=== PATIENT | female | born 1990 | race Caucasian/White ===

== ENCOUNTER → 2018-06-19 13:51 | Outpatient (CLI) | payer OTHER, SELFPAY | LOC: PSN 13:55 | PROVIDERS: Family Provider Student in an Organized Health Care Education/Training Program; PCP Student in an Organized Health Care Education/Training Program; Referring Provider Student in an Organized Health Care Education/Training Program; Visit Provider Student in an Organized Health Care Education/Training Program | DX: R00.2 Palpitations (principal) | CPT/HCPCS: 93225; 93226 ==

== ENCOUNTER 2020-02-03 16:33 | Day surgery (SDC) | payer SELFPAY ==
[2020-02-03] VITALS (8 sets, daily range): BP systolic 97–134; BP diastolic 49–86; PULSE 65–111; RESP 16; TEMP 36.1–36.7; O2SAT 96–99; BMI 30.7
[2020-02-03] MEDS: Lactated Ringers 1,000 ML 100 ML IV (17:05)
--- NOTE | 2020-02-03 17:05 | HP.PCM_ITS ---
- Problem List (1) Ectopic Status: Acute History Date of Admission: 02/03/20 History of this : This is a 29 year-old, who presents for surgical management of a ruptured ectopic . She was following with Elisabet Robles a nurse metal storage worker in our office for early . She reports severe pain 3 days ago as well as light bleeding. Her pain is improved but she is continuing to have vaginal bleeding. Her hCG quant's are consistent with an ectopic . She had an ultrasound today showing a complex appearing mass likely in the right fallopian tube with free fluid surrounding the right ovary, highly suspicious for ruptured ectopic . Has any lightheadedness, dizziness, chest pain, shortness of breath. Medical History: Medical History (Last Updated 02/03/20 @ 17:[address] Fabiola Paul DO) Family history of FAP (familial adenomatous polyposis) Z83.71 Thyroiditis E06.9 Surgical History: Surgical History (Last Updated 02/03/20 @ 17:[address] Fabiola Paul DO) History of colonoscopy Z98.890 History of thyroidectomy Z90.09 Allergies No Known Allergies Allergy (Verified 02/03/20 16:43) Home Medications: Home Medications Levothyroxine Sodium 250 mcg PO 02/03/20 Smoking Status: Current every day smoker History Past Pregnancies: Past Pregnancies Delivery Date Name GA/ Weeks Outcome Route Wt Infant Sex Labor Length Anesthesia Delivery Location Provider FOB Review of Systems Constitutional: Denies: Chills, Fever HEENT: Denies: Head Aches Cardiovascular: Denies: Chest Pain Respiratory: Denies: Cough, Shortness of Breath Gastrointestinal: Denies: Abdominal Pain Genitourinary: Denies: Dysuria Gynecological: Reports: Vaginal bleeding Neurological: Denies: Blurred vision Hematologic/ Lymphatic: Denies: Easy Bruising, Easy Bleeding, Hx of blood clot, Hx of blood transfusion Physical Exam Vitals: Vital Signs Temp Pulse Resp BP Pulse Ox 98.1 F 102 H 16 134/86 H 97 02/03/20 16:46 02/03/20 16:46 02/03/20 16:46 02/03/20 16:46 02/03/20 16:46 General: Alert, No apparent distress HEENT: Atraumatic Cardiovascular: Regular rate Lungs: Clear to auscultation Abdomen: Non-Distended Extremities:: No edema Neurological: Neuro grossly intact Assessment/Plan All Active Problems Ectopic (Acute) This is a 29 year-old, who presented to the office with a likely ruptured ectopic . Her hCG quant levels were being followed in the office, and the levels were decreasing as well as inappropriately rising consistent with an ectopic . She had severe pain several days ago followed by vaginal bleeding. Her pain is improved since then. She had an ultrasound today in the office that shows a likely ruptured ectopic in the right fallopian tube. Discussed risks, benefits, alternatives to a laparoscopic removal of ectopic . Consent was signed and patient desires to proceed with surgical management of a likely ectopic . Counseling today and all questions were answered regarding ectopic in future pregnancies.
[2020-02-03] MEDS: Bupivacaine Mpf 0.5% 30 ML VIAL (17:53)
--- NOTE | 2020-02-03 17:57 | OP.PCM_ITS ---
Problem List (1) Ectopic Status: Acute Report of Operation Date of Procedure: 02/03/20 Pre-Operative Diagnosis: Suspected ectopic Post-Operative Diagnosis: Ruptured ectopic in right fallopian tube Surgery/Procedure Performed:: Laparoscopic right salpingectomy with removal of ruptured ectopic Description of Surgical Findings:: Ectopic present in the right fallopian tube that was ruptured and slowly, actively bleeding. Normal-appearing uterus, bilateral ovaries, left fallopian tube. Minimal amount of hemoperitoneum, about 25 cc of dark red blood present. Type of Anesthesia:: General Special Medications: None Specimen's removed: Right fallopian tube Drains: None Estimated Blood Loss (mL): 10 cc Fluids Replaced: 1 L Description of Procedure: The patient was taken to the operating room where she was prepped and draped in the dorsal lithotomy position using yellowfin stirrups. General anesthesia was induced. From below a weighted speculum was placed in the vagina to expose the cervix. A single-tooth tenaculum was placed on the anterior lip of the cervix and a Alysa cannula was placed for uterine manipulation. Gloves were changed and attention was turned to the abdominal portion of the case. Local was injected below the umbilicus and an incision was made to accommodate a 5 mm port. A 5 mm port was placed under direct visualization with the laparoscope. Once confirmed intraperitoneal CO2 insufflation was initiated. A left lateral 5 mm port was placed. A right lateral 12 mm port was placed. The pelvis was examined and findings were noted as above. The right fallopian tube with the ectopic was followed out to the fimbriated end. The right fallopian tube was elevated of the pelvis and using the LigaSure device the mesosalpinx was serially cauterized and transected in order to remove the right fallopian tube and the ectopic . An Endo Catch bag was placed in the right lateral port to remove the right fallopian tube with ectopic . The specimen was sent to pathology for review. The area was noted to be hemostatic. Ports were removed. The fascia of the 12 mm port site was closed with a figure-of- eight Vicryl suture. And was closed with Monocryl and Dermabond was placed over the incisions. Below all instruments were removed from the vagina and vaginal sweep was performed. Instrument counts were correct. Patient was taken recovery in stable condition. Grafts/Implants Used: None - Complications None - Admit VTE Documentation VTE Present on Admission: No VTE Mechan Device Prophylaxis: SCD's
--- NOTE | 2020-02-03 18:21 | DCINST_ITS ---
- Discharge Diagnoses Current Active Problems: Current Active and Chronic Problems (Last Updated 02/03/20 @ 17:[address] Fabiola Paul DO) Ectopic (Acute) You will use the following diet at home:: No restrictions, Regular Discharge Activity: May not drive while taking narcotic pain medications., May Shower Return to work on:: 02/10/20 May shower in (days): 0 May resume sexual activity in: 2 weeks Ice area for (Minutes): 15 Weight Bearing Status: Weight bearing as tolerated Lifting Restrictions: No lifting greater than 15 pounds for 6 weeks Call your doctor if your incision/area has: Sudden Increased Bleeding, Increased Pain/ Swelling, Increased Redness, Foul Smelling Discharge, Swelling at the incision site Call your doctor if you observe: Fever of 101 or Higher, Inability to urinate, Inability to have a bowel movement, Using more than one pad per hour, Shortness of breath, Dizziness, Chest pain, Increased palpitations (irregular heartbeat), Calf discomfort, Uncontrolled pain Suture Line Care: Avoid Pulling/Pushing, Avoid Pinching/Bending Cleanse incision/area with: Soap & Water Allergies/Adverse Reactions: Allergies No Known Allergies Allergy (Verified 02/03/20 16:43) Medications to take at Discharge Ibuprofen [Motrin] 600 mg PO Q6H PRN PRN #30 tab 02/03/20 Levothyroxine Sodium 250 mcg PO 02/03/20 Oxycodone HCl/Acetaminophen [Percocet 5/325] 1 tab PO Q6H PRN PRN 7 Days #10 tab 02/03/20 The following prescriptions were given: Ibuprofen [Motrin] 600 mg PO Q6H PRN PRN #30 tab PRN Reason: Pain Score 1-10/10 Transmission Status: Received by [facility] Oxycodone HCl/Acetaminophen [Percocet 5/325] 1 tab PO Q6H PRN PRN 7 Days #10 tab PRN Reason: Pain Score 6-10/10 Transmission Status: Received by [facility] Primary Care Physician: Stefan Pineda DO [Primary Care Provider] - Test Results: Test results from this visit will be discussed in further detail at your follow- up appointment, if applicable. Please Follow Up With: Fabiola Paul DO When: 1-2 weeks for post op appointment Proposed Discharge Date: 02/03/20
--- NOTE | 2020-02-04 | FALS_PTH ---
PATIENT: RAZIA [place] [facility] [id number] AGE/SX: 29/F ROOM: RE02/03/[address]: Dr. Fabiola Paul DO : 1990 BED: DIS: 02/03/2020 SPEC #: [id number] RECD: 02/04/20 09:50 STATUS: KEENAN REMitch #: [id number] TIFFANIE: 02/04/20 00:[address]: Fabiola Paul DEPT: SURGICAL PATHOLOGY RECD BY: Pan Montiel ENTERED: 02/04/20 12:05 SP TYPE: FALL TUBES OTHR DR: Dr. Stefan Pineda, Tissues: Fallopian tube Procedures: Surgery Specimen Level IV HEADER OPERATION: Laparoscopic right salpingectomy PRE-OP DIAGNOSIS: Ectopic TISSUE SUBMITTED: Right fallopian tube MICROSCOPIC DIAGNOSIS Right fallopian tube, salpingectomy: Intraluminal chorionic villi consistent with tubal . AM:aury 02/05/20 MICROSCOPIC DESCRIPTION Slides are reviewed. GROSS DESCRIPTION Received in fixative is one container labeled with the patient's name and designated right fallopian tube. The specimen consists of a distended fallopian tube measuring 5 cm in length and up to 1.5 cm in diameter. The fimbrial end is identified. Also present in the container are multiple blood clots measuring in aggregate 1.5 x 1 x 0.3 cm. Sectioning of the fallopian tube reveal that the lumen is filled with blood clots. tissue is not identified. The entire specimen is submitted in four cassettes. / CADEN:aury 02/04/20 TC:5 CPT: 93954
== END 2020-02-03 19:34 | disposition home or self-care (01) ==
LOC: SDC 16:35 → ACINP 16:36
PROVIDERS: PCP Student in an Organized Health Care Education/Training Program; Visit Provider Obstetrics & Gynecology
PROC: 10T24ZZ Resection of Products of Conception, Ectopic, Percutaneous Endoscopic Approach (ICD-10-PCS; CPT 59150; principal; 2020-02-03 16:30)
DX: O00.90 Unspecified ectopic pregnancy without intrauterine pregnancy (principal); O99.280 Endocrine, nutritional and metabolic diseases complicating pregnancy, unspecified trimester; E03.9 Hypothyroidism, unspecified; O99.330 Smoking (tobacco) complicating pregnancy, unspecified trimester; F17.200 Nicotine dependence, unspecified, uncomplicated; Z3A.00 Weeks of gestation of pregnancy not specified
CPT/HCPCS: 00840; 59151; 88302; 88305; J7120; J2405

== ENCOUNTER 2021-01-19 08:40 | Outpatient (CLI) | payer BC, SELFPAY ==
[2020-09-06 10:23] VITALS: BMI 31.0
[2021-01-19 08:54] VITALS: TEMP 36.3
[2021-01-19 08:55] VITALS: BP 130/79; PULSE 106; O2SAT 99
[2021-01-19 09:00] VITALS: BMI 36.0
[2021-01-19 09:39] LABS: ROM Internal Control Test YES-OK TO RESULT pt. (Internal QC); ROM Patient Test Negative (Negative)
[2021-01-19 10:10] VITALS: BP 127/67; PULSE 84
[2021-01-19 10:17] LABS: Hematocrit 33.7 % (37-47); Hemoglobin 10.1 g/dL (12.0-15.0); Mean Corpuscular Hgb 23.2 pg (27.0-32.0); Mean Corpuscular Volume 77.3 fL (81-99); Mean Platelet Vol. 11.3 fl (6.2-12.0); Platelet Count 256 K/mm3 (150-450); RBC Distribution Width CV 15.9 % (11.6-14.6); RBC Distribution Width SD 44.4 fl (35.1-43.9); Red Blood Count 4.36 M/mm3 (4.2-5.4); White Blood Count 14.2 K/mm3 (4.4-11.0)
[2021-01-19 10:37] LABS: AST(SGOT) 12 U/L (15-37); Alanine Aminotransfer ALT/SGPT 15 U/L (13-56); EST Glomerular Filtration Rate 153 mL/min (>60); Est Glom Filt Rate - Afr Amer 185 mL/min (>60); Estimated Creatinine Clearance 145.35 ml/min; Uric Acid 3.6 mg/dL (2.6-6.0)
[2021-01-19 10:46] LABS: Protein:Creat Ratio 178 mg/g CRE (0-200)
--- NOTE | 2021-01-24 08:39 | OB.TRI.NOTE ---
HPI - General HPI Narrative RAZIA MOROCHO, is a 30 F who presents at 39w0d for complaint of possible ROM. No contractions or other complaints. COUNTS INCLUDE 234 BEDS AT THE [facility] Medical History (Updated 01/24/21 @ 08:41 by Elisabet Robles CNM) Depression Family history of FAP (familial adenomatous polyposis) Thyroid disorder Thyroiditis Home Medications levothyroxine 250 mcg PO DAILY 02/03/20 [History Last Taken 01/20/21 09:00] prenat.vits,adriane,enr-psqs-lzuil 1 tab PO DAILY 09/06/20 [History Last Taken 01/20/21 11:00] acetaminophen [Acetaminophen Extra Strength] 1,000 mg PO Q6H PRN 20 Days #20 tab 01/23/21 [Rx Last Taken Unknown] ferrous sulfate [FeroSul] 325 mg PO QODAY 60 Days #15 tab 01/23/21 [Rx Last Taken Unknown] ibuprofen 600 mg PO Q6H PRN #60 tablet 01/23/21 [Rx Last Taken Unknown] oxycodone 5 mg PO Q6H PRN PRN 7 Days #20 tablet 01/23/21 [Rx Last Taken Unknown] Allergy/AdvReac Type Severity Reaction Status Date / Time No Known Allergies Allergy Verified 01/20/21 20:10 Family History Other Alcohol abuse Bowel disease Colon cancer Surgical History (Updated 01/22/21 @ 07:[address] Maribell Morocho MD) History of colonoscopy History of gynecologic surgery History of surgery History of thyroidectomy Social History (Updated 09/06/20 @ 13:[address] Quentin Mendez MD) Smoking Status: Former smoker History Elective abortions Hx Para 0 Spontaneous abortions Hx # Term Pregnancies Ectopic pregnancies Hx # Pregnancies Multiple births # of living children NST FHR Rate Baby A Baseline: 135 Variability:: Moderate Accelerations:: 15 x 15 Decelerations:: Variable NST Reactive:: Yes Uterine Activity:: Irregular Assessment & Plan Assessment/Plan (1) Vaginal discharge: PLAN: ROM plus negative No active signs of labor or continued leakage of fluid Discharge home and follow up in office as planned
== END 2021-01-19 11:20 ==
LOC: WPOUT 08:50 → WP 08:50
PROVIDERS: PCP Student in an Organized Health Care Education/Training Program; Referring Provider Advanced Practice Midwife; Visit Provider Advanced Practice Midwife
DX: O26.893 Other specified pregnancy related conditions, third trimester (principal); N89.8 Other specified noninflammatory disorders of vagina; O36.8330 Maternal care for abnormalities of the fetal heart rate or rhythm, third trimester, not applicable or unspecified; O99.283 Endocrine, nutritional and metabolic diseases complicating pregnancy, third trimester; E06.9 Thyroiditis, unspecified; Z79.890 Hormone replacement therapy; Z79.899 Other long term (current) drug therapy; Z87.891 Personal history of nicotine dependence; Z3A.39 39 weeks gestation of pregnancy
CPT/HCPCS: 36415; 59025; 82565; 82570; 84112; 84156; 84450; 84460; 84550; 85027; 99218; G0378

== ENCOUNTER 2021-01-20 20:02 | Inpatient (IN) | payer BC, SELFPAY ==
[2021-01-19 09:00] VITALS: BMI 36.0
[2021-01-20 20:03] VITALS: BP 136/81; PULSE 86; TEMP 36.7
[2021-01-20 20:22] VITALS: BMI 36.4
[2021-01-20] MEDS: Lactated Ringers 1,000 ML 50 ML IV (20:32)
[2021-01-20 20:46] LABS: Absolute Lymphocyte Count 1.87 X10^3/uL (0.83-4.51); Absolute Neutrophil Count 15.3 X10^3/uL (2.0-7.7); Basophil# 0.05 X10^3/uL; Basophil% 0.3 % (0-1); Eosinophil# 0.16 X10^3/uL; Eosinophils% 0.8 % (0-5); Hematocrit 33.1 % (37-47); Hemoglobin 10.1 g/dL (12.0-15.0); Lymphocyte # 1.87 X10^3/ul (0.83-4.51); Lymphocyte % 9.9 % (19-41); Mean Corp Hgb Conc 30.5 g/dL (32-36); Mean Corpuscular Hgb 23.8 pg (27.0-32.0); Mean Corpuscular Volume 77.9 fL (81-99); Mean Platelet Vol. 11.3 fl (6.2-12.0); Monocyte# 1.26 X10^3/uL; Monocyte% 6.7 % (0-10); NRBC Flagged by Analyzer 0 % (0-5); Neutrophil # 15.28 X10^3/uL (2.7-7.7); Neutrophil % 80.8 % (47-70); Platelet Count 252 K/mm3 (150-450); RBC Distribution Width CV 15.9 % (11.6-14.6); RBC Distribution Width SD 44.7 fl (35.1-43.9); Red Blood Count 4.25 M/mm3 (4.2-5.4); White Blood Count 18.9 K/mm3 (4.4-11.0)
[2021-01-20 21:00] VITALS: BP 145/67; PULSE 99; TEMP 37.3; O2SAT 98
[2021-01-20] MEDS: 0.9% Saline Lock 10 ML Syringe IV (21:33)
[2021-01-20] MEDS: fentaNYL 100 MCG/2 ML Ampul IV (21:33)
[2021-01-20 22:00] VITALS: BP 131/62; PULSE 100; TEMP 37.4; O2SAT 98
[2021-01-20 23:02] VITALS: BP 131/79; PULSE 103
[2021-01-20 23:03] VITALS: O2SAT 98
[2021-01-20 23:05] VITALS: TEMP 37.2
[2021-01-21] VITALS (43 sets, daily range): BP systolic 98–142; BP diastolic 44–81; PULSE 86–136; RESP 14–20; TEMP 36.1–37.7; O2SAT 92–100
[2021-01-21] MEDS: 0.9% Saline Lock 10 ML Syringe IV ×3 (00:40→20:47)
[2021-01-21] MEDS: Lactated Ringers 500 ML 999 ML IV ×2 (00:49→02:09)
[2021-01-21] MEDS: fentaNYL-bupivacaine (epidural) 100 ML BAG EPIDURAL (01:51)
--- NOTE | 2021-01-21 03:31 | HP.PCM.OB_ITS ---
HPI - General General Date of Admission: 01/20/21 HPI Narrative RAZIA MOROCHO, is a 30 F who presents with ctxs. [facility] Medical History (Updated 01/21/21 @ 03:[address] Luke Olea MD) Depression Family history of FAP (familial adenomatous polyposis) Thyroid disorder Thyroiditis Home Medications levothyroxine 250 mcg PO DAILY 02/03/20 [History Last Taken 01/20/21 09:00] aspirin 81 mg tablet,delayed release 81 mg PO DAILY 09/06/20 [History Last Taken 01/20/21 11:00] prenat.vits,adriane,kpv-cyyr-xsopp 1 tab PO DAILY 09/06/20 [History Last Taken 01/20/21 11:00] Allergy/AdvReac Type Severity Reaction Status Date / Time No Known Allergies Allergy Verified 01/20/21 20:10 Family History Other Alcohol abuse Bowel disease Colon cancer Surgical History (Updated 01/20/21 @ 20:30 by Alanis Dobbs) History of colonoscopy History of gynecologic surgery History of surgery History of thyroidectomy Social History (Updated 09/06/20 @ 13:[address] Quentin Mendez MD) Smoking Status: Former smoker History Elective abortions Hx Para 0 Spontaneous abortions Hx # Term Pregnancies Ectopic pregnancies Hx # Pregnancies Multiple births # of living children Addt'l History: See [facility] H&P H/o ectopic 01/2020 Vital Signs Vital Signs Vital Signs: 01/20/21 20:03 01/20/21 21:00 01/20/21 22:00 Temperature 98.1 F 99.1 F 99.3 F H Temperature Source Temporal Pulse Rate 86 99 100 Blood Pressure 136/81 H 145/67 H 131/62 H BP Systolic 136 145 131 BP Diastolic 81 67 62 Pulse Ox 98 98 01/20/21 22:01 01/20/21 23:02 01/20/21 23:03 Temperature Temperature Source Temporal Pulse Rate 103 H Blood Pressure 131/79 H BP Systolic 131 BP Diastolic 79 Pulse Ox 98 01/20/21 23:05 01/21/21 00:14 01/21/21 01:34 Temperature 99.0 F 99.1 F 99.9 F H Temperature Source Temporal Temporal Temporal Pulse Rate 97 113 H Blood Pressure 133/75 H 136/71 H BP Systolic 133 136 BP Diastolic 75 71 Pulse Ox 01/21/21 01:35 01/21/21 01:40 01/21/21 01:41 Temperature Temperature Source Pulse Rate 127 H 126 H 125 H Blood Pressure BP Systolic BP Diastolic Pulse Ox 98 98 92 01/21/21 01:47 01/21/21 01:49 01/21/21 01:52 Temperature Temperature Source Pulse Rate 136 H 122 H 122 H Blood Pressure 142/81 H BP Systolic 142 BP Diastolic 81 Pulse Ox 99 96 01/21/21 01:58 01/21/21 02:03 01/21/21 02:05 Temperature Temperature Source Pulse Rate 128 H 128 H 122 H Blood Pressure 116/53 L BP Systolic 116 BP Diastolic 53 Pulse Ox 97 98 01/21/21 02:07 01/21/21 02:08 01/21/21 02:13 Temperature Temperature Source Pulse Rate 122 H 123 H 110 H Blood Pressure 102/53 L 109/53 L BP Systolic 102 109 BP Diastolic 53 53 Pulse Ox 98 99 01/21/21 02:18 01/21/21 02:19 01/21/21 02:23 Temperature Temperature Source Pulse Rate 109 H 109 H Blood Pressure 113/58 L BP Systolic 113 BP Diastolic 58 Pulse Ox 99 99 01/21/21 02:34 01/21/21 02:49 01/21/21 03:11 Temperature 97.2 F L Temperature Source Temporal Pulse Rate 106 H 118 H Blood Pressure 113/58 L 99/50 L BP Systolic 113 99 BP Diastolic 58 50 Pulse Ox Physical Exam Const alert and oriented x3 Chest inspection of chest normal Resp normal respiratory effort external exam normal Narrative: Cvx - 6/80/-2 Assessment & Plan (1) Supervision of normal first : QUALIFIERS: Trimester: third trimester Qualified Code(s): Z34.03 - Encounter for supervision of normal first , third trimester PLAN: Admit to L&D for labor @ 39&2 AROM for clear fluid. FSE & IUPC placed. Will start amnioinfusion as patient with some variable & late appearing decelerations. FWB is overall reassuring & FHR pattern is improved with amnioinfusion. Plan for pitocin augmentation if no cervical change after AROM. GBS positive - pcn per protocol Pain - epidural as desired Routine care
[2021-01-21] MEDS: Amnioinfusion- 0.9% NS 1,000 ML IV.SOLN. INTRA-UTER (03:35)
--- NOTE | 2021-01-21 05:37 | EX.PCM.OBRPT ---
Maternal Data Information Final BASSAM: 01/26/21 Gestational age: 39&2 Details Operative Information Date of Procedure: 01/21/21 Pre-Operative Diagnosis: Non reassuring heart tracing Post-Operative Diagnosis: Same Indications for : Nonreassuring Status Indications Narrative: Patient presented in labor. She began to have intermittent late & variable decelerations. AROM with IUPC & FSE placement occurred. Amnioinfusion started with some improvement in heart tracing. Patient then began to have persistent late decelerations. Patient was counseled on R/B/A and elected to proceed with section. Classification: CHAVO Procedure Type: low transverse certified medical transcriptionist #1: Dulce Maria Stevenson Type of Anesthesia: Epidural Antibiotic Given: Ancef 2 grams IV x1 and Zithromax 500 mg/5 mL X1 Drain: Luke to straight drain Estimated Blood Loss: 750ml Fluids Replaced: 1,000ml Findings Description of Procedure: The patient was taken to the operating room where epidural anesthesia was dosed. She was prepped and draped in the dorsal supine position with a leftward tilt. A Pfannenstiel skin incision was made approximately 2 cm above the symphysis pubis and carried through to underlying layer fascia with the scalpel. The fascia was incised incised in the midline and extended laterally with blunt dissection. The rectus muscles were in the midline and the peritoneum was entered bluntly. The peritoneal incision was stretched and the bladder blade was inserted. The uterine incision was made in a low transverse fashion with the scalpel and extended superiorly and inferiorly with blunt dissection. The 's head was brought to the incision in the flexed position and delivered without difficulty. The remainder of the was delivered with gentle traction and fundal pressure in the standard fashion. The 3VC was clamped and cut. Then the was handed off to the waiting nursing staff. The placenta was delivered with fundal massage and gentle traction in the standard fashion. The uterus was exteriorized and cleared of all clots and debris. The uterine incision was closed with #1 Vicryl in a running locked fashion. A second layer of monocryl used in an imbricating fashion. 1 additional suture was placed for additional hemostasis. The incision was examined and was found to be hemostatic. The uterus was placed back into the peritoneal cavity and hemostasis was again confirmed. Yany was placed over the uterine incision. Peritoneum was closed with 3-0 vicryl. The rectus muscles were examined and any bleeding was Bovie cauterized. The fascia was closed with looped PDS. The subcutaneous tissue was examining and any bleeding was Bovie cauterized. The subcutaneous tissue was reapproximated with 3-0 Vicryl suture. The skin was closed in a subcuticular fashion by the CLIENT TECHNOLOGIES ANALYST with me present in the labor and delivery suite. I performed the remainder of the procedure with assistance. All sponge, lap, and needle counts were correct. The patient was taken to her room for recovery in a stable condition. Start time:6:01 Stop time: 7:08 Presentation: Positive for Vertex Amniotic Membrane Rupture Type: Artificial Amniotic Fluid Description: Clear Placental Delivery Description: Expressed Placenta Disposition: [facility] Cord Vessel Description: 3 Vessels Cord Entanglement: None Cord Gases: ABG and VBG Infant A Gender: Female ([place]) (1 minute): 4 (5 minute): 9 Delayed Cord Clamping: No
[2021-01-21] MEDS: Sodium Citrate/Citric Acid 30 ML UDC PO (05:42)
[2021-01-21] MEDS: Cefazolin 2 GM in 0.9% Normal Saline 100 ML IV (05:47)
[2021-01-21] MEDS: Oxytocin 30 units/NS 500 ml 30 UNITS/500 ML IV.SOLN 167 UNITS IV (07:10)
[2021-01-21] MEDS: Ketorolac 30 MG/ML Syringe IV ×3 (07:45→20:47)
[2021-01-21] MEDS: Lactated Ringers 1,000 ML 100 ML IV (10:15)
[2021-01-21] MEDS: Prenatal Vits Tablet 1 TABLET PO (12:06)
[2021-01-21] MEDS: Senna/Docusate Sodium 1 Tablet PO (12:06)
[2021-01-21] MEDS: Acetaminophen 500 MG Tablet 1000 MG PO ×2 (12:06→17:59)
[2021-01-21] MEDS: Enoxaparin 40 MG/0.4 ML Syringe SC (17:58)
[2021-01-22] MEDS: Acetaminophen 500 MG Tablet 1000 MG PO ×4 (00:24→18:01)
[2021-01-22 00:27] VITALS: BP 116/49; PULSE 101; RESP 16
[2021-01-22] MEDS: 0.9% Saline Lock 10 ML Syringe IV (01:55)
[2021-01-22] MEDS: Ketorolac 30 MG/ML Syringe IV (01:55)
[2021-01-22] MEDS: oxyCODONE 5 MG Tablet PO ×2 (03:20→08:14)
[2021-01-22 04:23] VITALS: BP 124/63; PULSE 101; RESP 16; TEMP 36.6; O2SAT 94
[2021-01-22 04:47] LABS: Hematocrit 25.7 % (37-47); Hemoglobin 7.7 g/dL (12.0-15.0); Mean Corpuscular Hgb 23.5 pg (27.0-32.0); Mean Corpuscular Volume 78.6 fL (81-99); Mean Platelet Vol. 11.2 fl (6.2-12.0); Platelet Count 182 K/mm3 (150-450); RBC Distribution Width CV 15.9 % (11.6-14.6); RBC Distribution Width SD 45.5 fl (35.1-43.9); Red Blood Count 3.27 M/mm3 (4.2-5.4); White Blood Count 14.6 K/mm3 (4.4-11.0)
[2021-01-22] MEDS: Levothyroxine 125 MCG Tablet 250 MCG PO (06:48)
--- NOTE | 2021-01-22 07:46 | PCM.PN.OB ---
Subjective Subjective Pain not well controlled. Average lochia. Denies CP/SOB. +flatus, no BM. Objective Data Objective Data Vital Signs: Vital Signs Temp Pulse Resp BP Pulse Ox 97.9 F 101 H 16 124/63 H 94 01/22/21 04:23 01/22/21 04:23 01/22/21 04:23 01/22/21 04:23 01/22/21 04:23 Oxygen Delivery Method Room Air Weight: 99.45 kg Body Mass Index (BMI) 36.4 Intake & Output: Intake and Output for Last 24 Hours 01/20/21 01/21/21 01/22/21 23:59 23:59 23:59 Intake Total 121.66 / 121.66 3756.67 / 3756.67 Output Total 1500 / 1500 350 / 350 Balance 121.66 / 121.66 2256.67 / 2256.67 -350 / -350 Lab / Micro Data Result Diagrams: 01/22/21 04:36 Labs: Laboratory Results - last 24 hr 01/22/21 04:36 WBC 14.6 H RBC 3.27 L Hgb 7.7 L Hct 25.7 L MCV 78.6 L MCH 23.5 L MCHC 30.0 L RDW Std Deviation 45.5 H RDW Coeff of Wu 15.9 H Plt Count 182 MPV 11.2 Micro: Microbiology 01/20/21 20:35 Interface Orders SARS-CoV-2 Antigen (Rapid) - Final Physical Exam Const alert General Appearance: cooperative GI GI Narrative: soft, moderate distention, fundus firm, appropriately tender. Abdominal bandage clean dry and intact Assessment & Plan (1) deliv NOS-unsp: PLAN: POD#1. pain not well controlled. Give toradol IM x 1 now and hold next ibuprofen. Give oxycodone to see if pain control can get caught up. , work on that today acute blood loss anemia, slightly more than expected for EBL documented. recheck at 2pm to see if partially dilutional. Monitor for symptoms of acute blood loss anemia
[2021-01-22 08:04] VITALS: BP 133/77; PULSE 107; RESP 18; TEMP 36.2; O2SAT 97
[2021-01-22] MEDS: Ketorolac 30 MG/ML Syringe IM (08:18)
[2021-01-22] MEDS: Senna/Docusate Sodium 1 Tablet PO (08:24)
[2021-01-22] MEDS: Prenatal Vits Tablet 1 TABLET PO (08:24)
[2021-01-22 14:27] VITALS: BP 118/64; PULSE 89; RESP 18; TEMP 36.3; O2SAT 98
[2021-01-22] MEDS: Ibuprofen 600 MG Tablet PO ×2 (14:31→22:37)
[2021-01-22 14:48] LABS: Hematocrit 26.7 % (37-47); Mean Corpuscular Hgb 23.5 pg (27.0-32.0); Mean Corpuscular Volume 78.5 fL (81-99); Mean Platelet Vol. 10.8 fl (6.2-12.0); Platelet Count 192 K/mm3 (150-450); RBC Distribution Width CV 16.3 % (11.6-14.6); RBC Distribution Width SD 46.4 fl (35.1-43.9)
[2021-01-22] MEDS: Enoxaparin 40 MG/0.4 ML Syringe SC (18:01)
[2021-01-22 22:33] VITALS: BP 122/71; PULSE 98; RESP 18; TEMP 36.1
[2021-01-23] MEDS: Acetaminophen 500 MG Tablet 1000 MG PO ×2 (00:29→06:29)
[2021-01-23 03:02] VITALS: BP 119/71; PULSE 82; RESP 18; TEMP 36.1
[2021-01-23] MEDS: Ibuprofen 600 MG Tablet PO ×2 (03:06→08:27)
[2021-01-23 05:47] LABS: Hemoglobin 7.8 g/dL (12.0-15.0); Mean Corpuscular Hgb 23.7 pg (27.0-32.0); Mean Platelet Vol. 10.6 fl (6.2-12.0); Platelet Count 194 K/mm3 (150-450); RBC Distribution Width CV 16.1 % (11.6-14.6); RBC Distribution Width SD 45.6 fl (35.1-43.9); Red Blood Count 3.29 M/mm3 (4.2-5.4); White Blood Count 14.4 K/mm3 (4.4-11.0)
[2021-01-23] MEDS: Levothyroxine 125 MCG Tablet 250 MCG PO (06:29)
[2021-01-23 08:19] VITALS: BP 120/60; PULSE 82; RESP 16; TEMP 36.1; O2SAT 97
--- NOTE | 2021-01-23 08:38 | PCM.PN.BLA ---
Progress Note Pain much better controlled today. Average lochia. Has had a bowel movement. Tolerating regular diet. Denies chest pain, shortness of breath, palpitations or lightheadedness. Physical Exam Const alert General Appearance: cooperative GI GI Narrative: soft, moderate distention, fundus firm, appropriately tender. Abdominal bandage clean dry and intact. No rebound or guarding Assessment & Plan Assessment/Plan (1) deliv NOS-unsp: PLAN: Estimated blood loss via calculated blood loss calculator is 1495 mL. This is consistent with a hemorrhage. Suspect blood loss during surgery was as estimated, but likely had some intraperitoneal bleeding yesterday. Hemoglobin and hematocrit are stabilized. Patient is tolerating anemia well. Will discharge home with vitamins and iron supplementation and routine prescriptions. Patient is comfortable with this plan. (2) Acute blood loss anemia (ABLA): (3) hemorrhage:
--- NOTE | 2021-01-23 08:41 | DS.PCM_ITS ---
Providers Date of Admission: 01/20/21 Primary Care Physician: Dr. Stefan Pineda DO Reason For Visit: CSECTION DELIVERY Diagnosis Discharge Diagnosis (1) deliv NOS-unsp: Status: Acute (2) Acute blood loss anemia (ABLA): Status: Acute Code(s): D62 - Acute posthemorrhagic anemia (3) hemorrhage: Status: Acute Code(s): O72.1 - Other immediate hemorrhage Medications at Discharge Home Medications levothyroxine 250 mcg PO DAILY 02/03/20 prenat.vits,adriane,svo-anbj-jsqmy 1 tab PO DAILY 09/06/20 acetaminophen [Acetaminophen Extra Strength] 1,000 mg PO Q6H PRN 20 Days #20 tab 01/23/21 ferrous sulfate [FeroSul] 325 mg PO QODAY 60 Days #15 tab 01/23/21 ibuprofen 600 mg PO Q6H PRN #60 tablet 01/23/21 oxycodone 5 mg PO Q6H PRN PRN 7 Days #20 tablet 01/23/21 Hospital Course Operations - (Primary low transverse section Via Pfannenstiel skin incision with double layer closure of the uterus) Procedures None Summary of Care Provided Hospital Course: Stephenie is a 30-year-old 2 para 0 female who was a dmitted for labor. She had persistent category 2 heart tracings despite resuscitative measures and was remote from delivery. Decision was made to proceed with section. This was performed without difficulty. Estimated blood loss during surgery was 750 cc. However, she had acute blood loss anemia. Suspected postoperative intraperitoneal hemorrhage. Calculated blood loss by postoperative day #2 was 1400 cc. This is consistent with hemorrhage. Patient was tolerating this well. She was discharged home on postoperative day #2 with routine prescriptions and instructions along with an iron supplementation and she is to follow-up in the office in 5 to 10 days or as needed. ABG / Lab / Microbiology Data Result Diagrams: 01/23/21 05:40 Laboratory: Laboratory Results - last 24 hr 01/22/21 01/23/21 14:35 05:40 WBC 15.0 H 14.4 H RBC 3.40 L 3.29 L Hgb 8.0 L 7.8 L Hct 26.7 L 26.0 L MCV 78.5 L 79.0 L MCH 23.5 L 23.7 L MCHC 30.0 L 30.0 L RDW Std Deviation 46.4 H 45.6 H RDW Coeff of Wu 16.3 H 16.1 H Plt Count 192 194 MPV 10.8 10.6 Microbiology: Microbiology 01/20/21 20:35 Interface Orders SARS-CoV-2 Antigen (Rapid) - Final D/C Instructions Discharge Diet: No restrictions Discharge Activity: Return to Normal Activity, May Not Drive (for 2 weeks.), [address] not drive while taking narcotic pain medications., May Shower and May Take a Tub Bath (in 7 days.) May resume sexual activity in: 4-6 weeks Additional Activity Instructions: Nothing in the vagina for 4-6 weeks. You may return to work/school in 6 weeks. Call your doctor if your incision/area has: Continuous Slow Oozing, Sudden Increased Bleeding, Increased Pain/ Swelling, Increased Redness and Foul Smelling Discharge Call your doctor if you observe: Fever of 101 or Higher and Using more than one pad per hour (for 2 hours) Suture Line Care: Avoid Pulling/Pushing and Avoid Pinching/Bending Cleanse incision/area with: Keep Dressing Clean & Dry Please Follow Up With: Luke Olea MD When: Call to make an appointment for an incision check in 7-10 days or as needed in our [phone]. You will need a post check in 6 weeks. Meaningful Use Info Meaningful Use Diagnoses (Choose all that apply): None applicable Discharge Plan Admission Admit Date/Time: 01/20/21 20:02 Primary Reason for Your Visit: , labor and delivery, Attending Provider: Luke Olea Primary Care Provider: Stefan Pineda Discharge Orders/Prescriptions Prescriptions: New acetaminophen [Acetaminophen Extra Strength] 500 mg tablet 1,000 mg PO Q6H PRN (Reason: fever or pain) 20 Days Qty: 20 RF: 0 ferrous sulfate [FeroSul] 325 MG tablet 325 mg PO QODAY 60 Days Qty: 15 RF: 1 ibuprofen [ibuprofen] 600 MG tablet 600 mg PO Q6H PRN (Reason: Pain) Qty: 60 RF: 1 oxycodone 5 MG tablet 5 mg PO Q6H PRN PRN (Reason: severe pain) 7 Days Qty: 20 RF: 0 Continued prenat.vits,adriane,eqa-mgls-syvcm Tablet 1 tab PO DAILY RF: 0 levothyroxine 200 MCG tablet 250 mcg PO DAILY RF: 0 Discontinued aspirin 81 mg tablet,delayed release (DR/EC) 81 mg PO DAILY RF: 0 Referrals / Follow Up: Stefan Pineda DO [Primary Care Provider] - Disposition Disposition (needs filled in before D/C Order can be placed): Home, self care
--- NOTE | 2021-01-23 11:03 | NURSING ---
discharge instr reviewed with the pt and her
== END 2021-01-23 10:55 | disposition home or self-care (01) | DRG 787 ==
LOC: WPOUT 20:04 → WP 20:04
PROVIDERS: Obstetrics & Gynecology; Admitting Provider Obstetrics & Gynecology; PCP Student in an Organized Health Care Education/Training Program; Visit Provider Obstetrics & Gynecology
DX: O99.824 Streptococcus B carrier state complicating childbirth (principal); D62 Acute posthemorrhagic anemia; O72.2 Delayed and secondary postpartum hemorrhage; O76 Abnormality in fetal heart rate and rhythm complicating labor and delivery; O99.284 Endocrine, nutritional and metabolic diseases complicating childbirth; E89.0 Postprocedural hypothyroidism; Z20.822 Contact with and (suspected) exposure to COVID-19; O26.893 Other specified pregnancy related conditions, third trimester; N89.8 Other specified noninflammatory disorders of vagina; Z79.82 Long term (current) use of aspirin; Z79.890 Hormone replacement therapy; Z79.899 Other long term (current) drug therapy; Z87.891 Personal history of nicotine dependence; Z3A.39 39 weeks gestation of pregnancy; Z37.0 Single live birth
CPT/HCPCS: 36415; 59025; 59050; 82565; 82570; 84112; 84156; 84450; 84460; 84550; 85025; 85027; 86850; 86900; 86901; 87426; 99218; 99251; J7030; J7120; A4216; G0378; G0463; J2405

== ENCOUNTER → 2022-09-30 | Outpatient (CLI) | payer BC, SELFPAY ==
--- NOTE | 2022-09-20 10:04 | HP.PCM_ITS ---
History and Physical Date of Admission: 10/05/22 HPI: The patient is a 32 year old female presenting for pre-operative visit. She is scheduled for laparoscopic salpingectomy, for sterilzation on 10/05/22. Procedure discussed along with risks, benefits and complications. Other alternatives discussed for management. Consent form signed? Yes. ? ? PAST MEDICAL HISTORY PAST MEDICAL HISTORY Diagnosis Date ? Anemia ? ? Anxiety state, unspecified ? ? Benign neoplasm of colon 2000 ? familial adenomatous polyposis ? Chronic depressive personality disorder ? ? Ectopic ? ? Personal history of unspecified urinary disorder ? ? Puncture wound of left thumb 02/22/2021 ? Toxic goiter ? ? Unspecified asthma(493.90) ? ? as a child ? ? PAST SURGICAL HISTORY PAST SURGICAL HISTORY Procedure Laterality Date ? DELIVERY ONLY ? 01/21/2021 ? [facility] ? COLONOSCOPY ? 2011 ? Dr. Nela Allen [facility], colorectal specialist ? COLONOSCOPY STOMA W/RMVL JUSTINA POLYP/OTH LES SNARE ? 2003 ? Lefty Rosado: 4 small polyps, biposy negative ? COLONOSCOPY STOMA W/RMVL JUSTINA POLYP/OTH LES SNARE ? 2005 ? Nav butler: 1 polyp ? EGD ? 2008 ? EGD ? 01/2013 ? SALPINGECTOMY OR OOPHERECTOMY-ECTOPIC Right 02/03/2020 ? right salpingectomy for ruptured ectopic ? THYROIDECTOMY TOTAL/COMPLETE ? 02/2013 ? total ? ? ? CURRENT MEDICATIONS Current Outpatient Medications Medication Sig Dispense Refill ? cyanocobalamin (VITAMIN B-12) 2,500 mcg tablet Take 1 tablet by mouth twice daily. 60 tablet 2 ? cholecalciferol, Vitamin D3, (VITAMIN D3) 1,250 mcg (50,000 unit) cap capsule Take 1 capsule by mouth one time a week. 4 capsule 2 ? levothyroxine (SYNTHROID) 50 mcg tablet Take daily by mouth on an empty stomach. For thyroid. In addidtion to 200 mcg tablet, to equal a total of 250 mcg daily. 90 tablet 1 ? rosuvastatin (CRESTOR) 10 mg tablet Take 1 tablet by mouth daily at bedtime. 90 tablet 0 ? levothyroxine (SYNTHROID) 200 mcg tablet Take 250 mcg daily. Take on empty stomach. For Thyroid. 36 tablet 0 ? topiramate (TOPAMAX) 25 mg tablet Take 1 tablet by mouth daily at bedtime. 30 tablet 0 ? budesonide, enteric coated (ENTOCORT EC) 3 mg 24 hr capsule Take 3 capsules by mouth once daily. 90 capsule 2 ? No current facility-administered medications for this visit. ? ? ALLERGIES: Patient has no known allergies. ? PERSONAL HISTORY: SOCIAL HISTORY Social History ? Tobacco Use ? Smoking status: Every Day ? ? Years: 15.00 ? ? Types: Cigarettes ? Smokeless tobacco: Never Vaping Use ? Vaping Use: Never used Substance Use Topics ? Alcohol use: No ? Drug use: No ? FAMILY HISTORY: FAMILY HISTORY FAMILY HISTORY Problem Relation Age of Onset ? Colon Cancer Mother ? ? other (familial adenomatous polyposis) Mother ? ? Heart Father ? ? No Known Problems Brother ? ? Aneurysm Paternal Grandmother ? ? Heart Paternal Grandmother ? ? Colon Cancer Maternal Grandmother ? ? Emphysema Maternal Grandfather ? ? other (Non Hodgkins Lymphoma) Paternal Grandfather ? ? other (familial adenomatous polyposis) Sister ? ? ? REVIEW OF SYMPTOMS: GENERAL: denies fevers or chills ENDOCRINOLOGY: has not been on steroids Cardiology : denies palpitations or chest pain Respiratory: denies SOB or cough Hematology: denies history of prolonged bleeding or easy bruising or VTE Allergy: Denies history of personal or family history of allergy to anesthesia ? PHYSICAL EXAMINATION: ? VITALS: Last menstrual period 03/07/2021, not currently . ? GENERAL: The patient is well nourished, well hydrated in no acute distress. , The patient is oriented to time, place, and person. NECK: Supple. No lynphadenopathy, normal thyroid, no thyromegaly. LUNGS: Clear to auscultation bilaterally. no wheezes, rhonchi or rales HEART: Regular rate and rhythm, Normal heart sounds, and No murmurs or gallops ? IMPRESSION: Sterilization request ? PLAN: The risks/benefits/alternatives and personal involved for the planned salpingectomy were reviewed with the patient. Her questions were answered to her satisfaction and she desires to proceed. Consent was signed. I reviewed with her postop instructions and expectations. ? ? I have reviewed and updated past medical and surgical history, medications and allergies Assessment & Plan Assessment/Plan (1) Sterilization:
== END | disposition home or self-care (01) ==
LOC: PAT 10-30 14:08
PROVIDERS: Anesthesiology; PCP Student in an Organized Health Care Education/Training Program; Referring Provider Obstetrics & Gynecology; Visit Provider Obstetrics & Gynecology
DX: Z01.818 Encounter for other preprocedural examination (principal)
CPT/HCPCS: 36415; 84443

== ENCOUNTER 2023-02-15 06:38 | Day surgery (SDC) | payer BC, SELFPAY ==
--- NOTE | 2023-02-02 12:42 | HP.PCM_ITS ---
History and Physical Date of Admission: 02/15/23 HPI: The patient is a 32 year old female presenting for pre-operative visit. She is scheduled for lapaproscopic bilateral salpigectomy, for sterilization on 02/15/2023. Procedure discussed along with risks, benefits and complications. Other alternatives discussed for management. Consent form signed? Yes. ? ? PAST MEDICAL HISTORY PAST MEDICAL HISTORY Diagnosis Date ? Anemia ? ? Anxiety state, unspecified ? ? Benign neoplasm of colon 2000 ? familial adenomatous polyposis ? Chronic depressive personality disorder ? ? Dyslipidemia 11/01/2022 ? Ectopic ? ? Personal history of unspecified urinary disorder ? ? Puncture wound of left thumb 02/22/2021 ? Toxic goiter ? ? Unspecified asthma(493.90) ? ? as a child ? ? PAST SURGICAL HISTORY PAST SURGICAL HISTORY Procedure Laterality Date ? DELIVERY ONLY ? 01/21/2021 ? [facility] ? COLONOSCOPY ? 2011 ? Dr. Nela Allen [facility], colorectal specialist ? COLONOSCOPY STOMA W/RMVL JUSTINA POLYP/OTH LES SNARE ? 2003 ? Lefty Rosado: 4 small polyps, biposy negative ? COLONOSCOPY STOMA W/RMVL JUSTINA POLYP/OTH LES SNARE ? 2005 ? Nav butler: 1 polyp ? EGD ? 2009 ? EGD ? 01/2013 ? SALPINGECTOMY OR OOPHERECTOMY-ECTOPIC Right 02/03/2020 ? right salpingectomy for ruptured ectopic ? THYROIDECTOMY TOTAL/COMPLETE ? 02/2013 ? total ? ? ? CURRENT MEDICATIONS Current Outpatient Medications Medication Sig Dispense Refill ? tirzepatide (MOUNJARO) 2.5 mg/0.5 mL pen injector Inject 2.5 mg subcutaneously one time a week. 2 mL 0 ? tirzepatide (MOUNJARO) 5 mg/0.5 mL pen injector Inject 5 mg subcutaneously one time a week. 2 mL 0 ? levothyroxine (TIROSINT-VALERIANO) 175 mcg/mL soln Take 1 mL by mouth daily before breakfast. 90 mL 3 ? cholecalciferol, Vitamin D3, (VITAMIN D3) 1,250 mcg (50,000 unit) cap capsule Take 1 capsule by mouth two times a week. 8 capsule 2 ? topiramate (TOPAMAX) 50 mg tablet Take 1 tablet by mouth daily at bedtime. (Patient taking differently: Take 50 mg by mouth daily at bedtime. 50mg in the morning and 50mg at night) 30 tablet 2 ? topiramate (TOPAMAX) 25 mg tablet Take 1 tablet by mouth daily at bedtime. 30 tablet 0 ? topiramate (TOPAMAX) 50 mg tablet Take 1 tablet by mouth twice daily. (Patient not taking: Reported on 02/02/2023) 60 tablet 2 ? topiramate (TOPAMAX) 25 mg tablet Take 1 tablet by mouth daily at bedtime. (Patient not taking: Reported on 02/02/2023) 30 tablet 2 ? cyanocobalamin (VITAMIN B-12) 2,500 mcg tablet Take 1 tablet by mouth twice daily. 60 tablet 2 ? rosuvastatin (CRESTOR) 10 mg tablet Take 1 tablet by mouth daily at bedtime. 90 tablet 0 ? No current facility-administered medications for this visit. ? ? ALLERGIES: Patient has no known allergies. ? PERSONAL HISTORY: SOCIAL HISTORY Social History ? Tobacco Use ? Smoking status: Every Day ? ? Years: 15.00 ? ? Types: Cigarettes ? Smokeless tobacco: Never Vaping Use ? Vaping Use: Never used Substance Use Topics ? Alcohol use: No ? Drug use: No ? FAMILY HISTORY: FAMILY HISTORY FAMILY HISTORY Problem Relation Age of Onset ? Colon Cancer Mother ? ? other (familial adenomatous polyposis) Mother ? ? Heart Father ? ? No Known Problems Brother ? ? Aneurysm Paternal Grandmother ? ? Heart Paternal Grandmother ? ? Colon Cancer Maternal Grandmother ? ? Emphysema Maternal Grandfather ? ? other (Non Hodgkins Lymphoma) Paternal Grandfather ? ? other (familial adenomatous polyposis) Sister ? ? ? REVIEW OF SYMPTOMS: GENERAL: denies fevers or chills ENDOCRINOLOGY: has not been on steroids Cardiology : denies palpitations or chest pain Respiratory: denies SOB or cough Hematology: denies history of prolonged bleeding or easy bruising or VTE Allergy: Denies history of personal or family history of allergy to anesthesia ? PHYSICAL EXAMINATION: ? VITALS: Blood pressure 118/72, pulse 86, height 5' 5 (1.651 m), weight 203 lb 8 oz (92.3 kg), last menstrual period 01/19/2023, SpO2 98 %. ? GENERAL: The patient is well nourished, well hydrated in no acute distress. , The patient is oriented to time, place, and person. NECK: Supple. No lynphadenopathy, normal thyroid, no thyromegaly. LUNGS: Clear to auscultation bilaterally. no wheezes, rhonchi or rales HEART: Regular rate and rhythm, Normal heart sounds, and No murmurs or gallops ? IMPRESSION: sterilization request ? PLAN: The risks/benefits/alternatives and personal involved for the planned laparoscopic bilateral salpingectomy were reviewed with the patient. Her questions were answered to her satisfaction and she desires to proceed. Consent was signed. I reviewed with her postop instructions and expectations. ? ? I have reviewed and updated past medical and surgical history, medications and allergies Assessment & Plan Assessment/Plan (1) Sterilization:
[2023-02-15] MEDS: Acetaminophen 500 MG Tablet 1000 MG PO (07:10)
[2023-02-15] MEDS: Lactated Ringers 1,000 ML 15 ML IV (07:10)
[2023-02-15] MEDS: Ketorolac 30 MG/ML Syringe IV (07:11)
[2023-02-15 07:12] VITALS: BP 123/78; PULSE 73; RESP 16; TEMP 36.1; O2SAT 100; BMI 33.5
[2023-02-15 07:24] LABS: Internal QC Validated? YES +Cl - CLEAR BKGD; Pregnancy, Urine Negative Negative
[2023-02-15 07:25] LABS: Hematocrit 43.3 % (37-47); Hemoglobin 13.2 g/dL (12.0-15.0); Mean Corp Hgb Conc 30.5 g/dL (32-36); Mean Corpuscular Hgb 26.2 pg (27.0-32.0); Mean Corpuscular Volume 85.9 fL (81-99); Mean Platelet Vol. 11.6 fl (6.2-12.0); Platelet Count 222 K/mm3 (150-450); RBC Distribution Width CV 14.6 % (11.6-14.6); RBC Distribution Width SD 45.3 fl (35.1-43.9); Red Blood Count 5.04 M/mm3 (4.2-5.4); White Blood Count 7.7 K/mm3 (4.4-11.0)
[2023-02-15 07:47] LABS: Thyroid Stim Hormone (TSH) 1.48 uIU/mL (0.358-3.74)
--- NOTE | 2023-02-15 08:20 | FALS_PTH ---
PATIENT: RAZIA MOROCHO LOC: [facility] – [place] U#:[id number] AGE/SX: 32/F ROOM: RE02/15/[address]: Dr. Maribell Morocho MD : 1990 BED: DIS: 02/15/2023 SPEC #: [id number] RECD: 02/15/23 16:25 STATUS: KEENAN REQ #: [id number] TIFFANIE: 02/15/23 08:[address]: Maribell Morocho DEPT: SURGICAL PATHOLOGY RECD BY: Audrey Nolasco ENTERED: 02/16/23 07:26 SP TYPE: FALL TUBES OTHR DR: Dr. Stefan Pineda, DO Tissues: Fallopian tube Procedures: Surgery Specimen Level II HEADER OPERATION: Laparoscopic salpingectomy PRE-OP DIAGNOSIS: Sterilization TISSUE SUBMITTED: Left fallopian tube MICROSCOPIC DIAGNOSIS Left fallopian tube, salpingectomy: Fallopian tube, no pathologic diagnosis. CADEN:aury 02/19/2023 MICROSCOPIC DESCRIPTION Slides are reviewed. GROSS DESCRIPTION Received in fixative is one container labeled with the patient's name and designated left fallopian tube. The specimen consists of a fallopian tube including fimbrial end. The fallopian tube is received in two pieces and measures 5.0 cm in length and up to 0.6 cm in diameter. Sections reveal unremarkable cut surfaces. Human Resources Manager sections are submitted in one cassette. / SJ:rg 02/16/2023 TC:4 CPT: 34578
[2023-02-15] MEDS: Bupivacaine Mpf 0.5% 30 ML VIAL (09:01)
--- NOTE | 2023-02-15 09:05 | OP.PCM_ITS ---
Problems Associated Problem List Diagnoses (1) Sterilization: Report of Operation Date of Procedure: 02/15/23 Pre-Operative Diagnosis: sterilization request Post-Operative Diagnosis: same Surgery/Procedure Performed:: Laparoscopic left salpingectgomy Description of Surgical Findings:: normal uterus and ovaries, right tube absent, left tube normal Surgeon: Maribell Morocho manager home improvement: None Type of Anesthesia: General Anesthesiologist: Elizabeth Fu Special Medications: none Specimen's removed: left fallopian tube Drains: none Estimated Blood Loss (mL): 5 Fluids Replaced: 1000 Description of Procedure: The patient was taken to the operating room where she was prepped and draped in the dorsolithotomy position. A weighted speculum was placed in the vagina and the anterior lip of the cervix was grasped with a tenaculum. The Maryellen uterine manipulator was placed and the remainder of the instruments were removed from the vagina. Attention was turned to the abdomen. All port sites were infiltrated with 0.5% Marcaine before skin incisions were made. A 5 mm intraumbilical incision was made. The anterior abdominal wall was tented up with 2 towel clamps while a 5 mm blade less trocar and sleeve were directly inserted. Intraperitoneal placement was confirmed with the laparoscope. The pneumoperitoneum was created and the underlying abdominal contents were intact. The patient was placed in Trendelenburg. Right and left lower quadrant ports were placed under direct visualization lateral to the inferior epigastric vessels. The bowel was swept away and the above findings were noted. The Enseal device was used to clamp seal and transect the antimesenteric portions of the left tube to the cornual insertion of the uterus. The tube was amputated from the uterus and the pedicles were all confirmed to be hemostatic. The specimen was brought out through a 5 mm port. The pedicles were again examined and found to be hemostatic. The right fallopian tube was completely absent. The lateral ports were removed under direct visualization and no active bleeding was noted. The pneumoperitoneum was released. The skin incisions were closed with Monocryl suture in a subcuticular fashion and skin glue. The vaginal instruments were removed and the vaginal sweep was completed by me. The entire procedure was performed by me. All sponge and needle counts were correct and the patient was taken to the recovery room in stable condition. Grafts/Implants Used: none Procedure Start Time: 08:43 Procedure Stop Time: 09:02 Complications none Admit VTE Documentation VTE Present on Admission: No VTE Mechan Device Prophylaxis: SCD's VTE Pharm Prophylaxis ordered?: No Reason prophylaxis not ordered:: Procedure Not Indicated
--- NOTE | 2023-02-15 09:10 | DCINST_ITS ---
Discharge Instructions Diet Discharge Diet: Light diet - advance as tolerated Activity Discharge Activity: May Drive (in 1-3 days as tolerated) May shower in (days): 1 May resume sexual activity in: - (in 2-3 days as tolerated) Dressing / Incision Call your doctor if your incision/area has: Continuous Slow Oozing, Sudden Increased Bleeding, Foul Smelling Discharge and Swelling at the incision site Call your doctor if you observe: Fever of 101 or Higher Cleanse incision/area with: Soap & Water (leave skin glue on until it falls off or 10 days) Additional Dressing/Incision Instructions:: Use tylenol and motrin as needed for pain, you can use heat or ice Follow Up Care Please Follow Up With: Maribell Morocho MD When: as needed. Contact the office at [phone] or via [facility] as needed for concerns Test Results: Test results from this visit will be discussed in further detail at your follow- up appointment, if applicable. Discharge Plan Admission Primary Reason for Your Visit: tubal sterilization Attending Provider: Maribell Morocho Primary Care Provider: Stefan Pineda Discharge Orders/Prescriptions Prescriptions: No Action cyanocobalamin (vitamin B-12) [Vitamin B-12] 100 mcg Tablet 1,000 mcg PO DAILY topiramate 25 mg tablet 50 mg PO BID Label Comments: TAKE 1 TABLET BY MOUTH ONCE DAILY AT BEDTIME rosuvastatin 10 mg tablet 10 mg PO QHS Label Comments: TAKE 1 TABLET BY MOUTH ONCE DAILY AT BEDTIME cholecalciferol (vitamin D3) 1,250 mcg (50,000 unit) capsule 50,000 unit PO QWEEK Label Comments: TAKE 1 CAPSULE BY MOUTH ONCE A WEEK Tirosint-Felisha 175 mcg/mL solution 175 mcg PO DAILY Referrals / Follow Up: Stefan Pineda DO [Primary Care Provider] - Disposition Disposition (needs filled in before D/C Order can be placed): Home, Self Care
[2023-02-15 09:19] VITALS: BP 114/64; BP 123/78; PULSE 81; RESP 16; TEMP 36.2; O2SAT 100
[2023-02-15 09:30] VITALS: BP 113/70; BP 123/78; PULSE 68; RESP 16; O2SAT 98
[2023-02-15 09:45] VITALS: BP 116/82; BP 123/78; PULSE 66; RESP 16; O2SAT 97
[2023-02-15 09:51] VITALS: BP 123/78; PULSE 57; RESP 16; TEMP 36.1; O2SAT 99
[2023-02-15 10:40] VITALS: BP 101/60; BP 123/78; PULSE 60; RESP 16; TEMP 36.8; O2SAT 100
== END 2023-02-15 10:41 | disposition home or self-care (01) ==
LOC: SDC 06:39 → AC 06:40
PROVIDERS: Anesthesiology; PCP Student in an Organized Health Care Education/Training Program; Referring Provider Obstetrics & Gynecology; Visit Provider Obstetrics & Gynecology
PROC: (CPT 58661; principal; 2023-02-15 08:05)
DX: Z30.2 Encounter for sterilization (principal); F34.1 Dysthymic disorder; E78.5 Hyperlipidemia, unspecified; F41.1 Generalized anxiety disorder; E07.9 Disorder of thyroid, unspecified; F17.210 Nicotine dependence, cigarettes, uncomplicated; Z79.890 Hormone replacement therapy; Z79.899 Other long term (current) drug therapy
CPT/HCPCS: 58661; 00840; 81025; 84443; 85027; 88302; J7120; C1760; J2405